=== PATIENT | female | born 1985 | race Caucasian/White ===

== ENCOUNTER → 2016-07-12 | Outpatient (CLI) | payer OTHER | LOC: COL.RAD 12:45 | DX: R10.31 Right lower quadrant pain (principal); R10.2 Pelvic and perineal pain ==

== ENCOUNTER → 2016-09-06 | Outpatient (REF) | LOC: WSOH 09:15 | DX: Z02.89 Encounter for other administrative examinations (principal) ==

== ENCOUNTER → 2018-11-26 | Outpatient (CLI) | payer OTHER | LOC: COL.RAD 07:11 | DX: M67.431 Ganglion, right wrist (principal) ==

== ENCOUNTER 2018-12-21 11:30 | Day surgery (SDC) | payer OTHER ==
[~2018-12-21] VITALS: Ht 170.2 cm; Wt 83.0 kg
[2018-12-21] MEDS ORDERED: ZYRTEC 10MG10 MG PO (12:00)
[2018-12-21] MEDS ORDERED: LUPRON5 MG/M2 SQ (12:01)
[2018-12-21] MEDS ORDERED: ZOLOFT 50MG50 MG PO (12:02)
[2018-12-21] MEDS ORDERED: PRENATAL VITAMI1 T12 PO (12:04)
[2018-12-21] MEDS ORDERED: FEMARA PO (12:06)
[2018-12-21] MEDS ORDERED: ESTRACE2 MG PO (12:06)
[2018-12-21] MEDS ORDERED: ESTRADERM0.1 MG/24 TD (12:07)
[2018-12-21 12:27] VITALS: BP 120/71; PULSE 48; TEMP 97.7
[2018-12-21 14:40] VITALS: BP 99/58; PULSE 48; TEMP 97.8
--- NOTE | 2018-12-21 14:40 | NUR ---
Patient arrives back to [facility] alert, denies pain or nausea. Patient monitor applied, vitals stable. Patient's spouse brought to bedside. Patient given muffin and soda. Patient's right wrist dressing clean/dry/intact with ice pack in place. Patient instructed to keep it elevated and turn/cough/deep breathe frequently.
[2018-12-21 14:55] VITALS: BP 100/64; PULSE 57
--- NOTE | 2018-12-21 15:00 | NUR ---
Patient reports she is doing well, denies pain or nausea. Vitals stable. Patient tolerated food and drink without any complications. CSM of right wrist WNL.
[2018-12-21 15:10] VITALS: BP 99/56; PULSE 52
--- NOTE | 2018-12-21 15:20 | NUR ---
Dismissal instructions gone over with patient and patient's spouse. Both verbalize understanding and all questions answered.
[2018-12-21 15:25] VITALS: BP 101/57; PULSE 52
--- NOTE | 2018-12-21 15:30 | NUR ---
Patient discharged to private vehicle per wheelchair without any complications or difficulties. Patient and spouse leave thanking staff for services.
== END 2018-12-21 15:30 | disposition home or self-care (01) ==
LOC: SDCO 11:30
DX: M67.431 Ganglion, right wrist (principal); Z88.8 Allergy status to other drugs, medicaments and biological substances; Z82.61 Family history of arthritis; F32.9 Major depressive disorder, single episode, unspecified
CPT/HCPCS: J0690; J1100; J2250; J2405; J2704; J3010; J7120

== ENCOUNTER → 2019-01-15 | Outpatient (CLI) | payer OTHER ==
[~2019-01-15] MED LIST: ESTRACE2 MG PO; ESTRADERM0.1 MG/24 TD; FEMARA PO; LUPRON5 MG/M2 SQ; PRENATAL VITAMI1 T12 PO; ZOLOFT 50MG50 MG PO; ZYRTEC 10MG10 MG PO
== END ==
LOC: COL.LAB 07:35
DX: Z32.00 Encounter for pregnancy test, result unknown (principal)

== ENCOUNTER 2019-06-02 21:05 | Outpatient (CLI) | payer OTHER ==
[~2019-06-02] VITALS: Ht 170.2 cm; Wt 86.4 kg
--- NOTE | 2019-06-02 21:00 | NUR ---
2099- PT PRESENTS TO LDR COMPLAINING OF DECREASED MOVEMENT, AMBULATORY TO ROOM LR5, TO BED. 2104- HEART TONES DOPPLERED 140-151 WITHOUT DIFFICULTY. PT REASSURED BY HEARING HEARTBEAT. PLAN OF CARE DISCUSSED. PT DENIES LEAKING FLUID, VAGINAL BLEEDING, CONTRACTION, FEVER, COUGH, SHORTNESS OF BREATH. 2109- VSS 2114- DR GARBER CALLED AND UPDATED ON PT COMPLAINT, HISTORY, DOPPLER, VSS. ORDERS FOR DISMISSAL TO HOME RECEIVED. 2119- NURSING ADMISSION HISTORY AND ASSESSMENT COMPLETE. 2134- DISMISSAL INSTRUCTIONS GIVEN AND PT VERBALIZES UNDERSTANDING. 2139- PT DISMISSED TO HOME AMBULATORY ACCOMPANIED BY STAFF.
[2019-06-02 21:10] VITALS: BP 117/65; PULSE 65; TEMP 98.3
== END 2019-06-02 21:40 | disposition home or self-care (01) ==
LOC: LDRO 21:05
DX: O36.8120 Decreased fetal movements, second trimester, not applicable or unspecified (principal); Z3A.23 23 weeks gestation of pregnancy

== ENCOUNTER → 2019-09-09 | Outpatient (CLI) | payer OTHER | LOC: COL.LAB 08:00 → ZCOL.LAB 08:53 → COL.LAB 09-13 08:48 | DX: Z20.828 Contact with and (suspected) exposure to other viral communicable diseases (principal) ==

== ENCOUNTER → 2019-09-23 | Outpatient (CLI) | payer OTHER ==
[~2019-09-23] MED LIST changes: +ENTOCORT EC3 MG PO; +IBU800 M1 PO; +LIALDA 1.2 GM1.2 GM PO; +PERCOCET 325 MG1 TA2 PO; +VITAMIN B-6100 MG
--- NOTE | 2019-09-23 15:32 | NUR ---
Pt, Sarah Wells, presents for outpatient consult with one week old baby girl, Juliet Wells, and pts spouse. She contacted this after Juliet was seen by Dr. Patel and was referred for BF evaluation. Juliet was born on [birth year] and weighed 8#7.8oz (3850 gms). Yesterday at the doctor appt she weighed 7#13oz per parent report. Today Juliet weighs 7#11.2oz (3492 gms) for a loss of 9% from . Pt reports Juliet has had about 3 voids and 4 small stools in the last 24 hours. She attempts to feed at least every 3 hours but describes Juliet as fussy and does not latch well or remain latched once attached. Pt also reports significant pain with feedings, even with use of a nipple shield. evaluates Juliet's mouth and suck effort. She has a slightly higher than normal arch of the anterior palate. When the gloved finger is advanced she does seem to curl and hold the finger in place but the tongue motion is disorganized. She can extend the tongue across the gum line and it lifts to the top lip. There is a palpable thick frenulum that does not extend to the tip of the tongue but may interfer with smooth wave-like motion of the tongue. also has a fairly noted lip tie as well. Juliet does not successfully latch and remain at the breast during this consult despite assistance from this and use of a nipple shield. Milk is dripping and abundantly available. LC tries several manuevers without success. Pt able to pump 2oz and this is then fed to Juliet who drinks it without difficulty from the bottle. The tongue remains in correct position with the bottle feeding. recommends evaluation of the tongue and lip tie. Discussed post proceedure wound care, and advised to breast feed as soon as possible after proceedure if the release is done. Resource list provided. POC: Three step feeding plan: Offer breast at each feeding, briefly if baby resisting or fighting. Supplement EBM, 2-2.5oz per feeding. Pump to maintain and have supply available for supplement. F/U: To be scheduled with this pending tongue tie evaluation. FridaySeptember [address] Pat[address]. Questions invited and answered.
== END ==
LOC: LAC 14:14
DX: Z39.1 Encounter for care and examination of lactating mother (principal); Z71.89 Other specified counseling

== ENCOUNTER → 2019-09-29 | Outpatient (CLI) | payer OTHER ==
--- NOTE | 2019-09-29 16:44 | NUR ---
Pt, Sarah Wells, presents for outpatient consult with 13 day old baby girl, Juliet Wells, and her spouse Marcelo Wells. They are being evaluated for milk transer s/p 2 days from frenectomy. Juliet was born on [birth year] and weighed 8#7.8oz (3850 gms). She had latch difficlutly at and followed up with this LC on 09/23/19. At that time she weighed 7#11.2oz (3493 gms). Ankyloglossia was noted and likely the cause of not latching. Juliet was seen by Dr. Amin on 09/27/19 for a release and she has been latching since, although not great every time. Pt still has some soreness with latching. Today Juliet weighs 7#15.4oz (3612 gms) for a gain of 4.2oz over the last 6 days. She is primarily breastfed, but gets an occassional ounce of EBM by bottle if she is not content after feeding. Pt has continued to pump after breastfeedings, collecting 1-2oz. Post feed Juliet has a gain of 1.3oz (36 gms). She was content but then a bit fussy. POC: Breastfeed q 2-3 hours, supplement 1oz EBM in the afternoon/evening feedings and follow with pumping. May skip supplement/pumping in the noc or early feedings if Juliet is content and milk volume is likely highest. F/U: Dr. Patel FridayOctober 03. Update to this LC after to determine follow up consult. Pt verbalizes understanding, questions invited and answered.
== END ==
LOC: LAC 15:30
DX: Z39.1 Encounter for care and examination of lactating mother (principal); Z71.89 Other specified counseling

== ENCOUNTER 2019-10-20 08:01 | Day surgery (SDC) | payer OTHER ==
[~2019-10-20] VITALS: Ht 172.7 cm; Wt 81.9 kg
[2019-10-20 08:52] VITALS: BP 97/52; PULSE 51; TEMP 97.6
[2019-10-20] MEDS ORDERED: LIALDA 1.2 GM1.2 GM PO (09:52)
[2019-10-20] MEDS ORDERED: VITAMIN D31000 I1 PO (09:54)
[2019-10-20] MEDS ORDERED: NATURAL IRON65 MG (09:55)
[2019-10-20] MEDS ORDERED: PRENATAL DHA 200 SG PO (09:59)
[2019-10-20] MEDS ORDERED: ZYRTEC 10MG10 MG PO (09:59)
[2019-10-20] MEDS ORDERED: VITAMIN B-6100 MG (10:00)
[2019-10-20 10:05] VITALS: BP 103/41; PULSE 58; TEMP 97.8
--- NOTE | 2019-10-20 10:05 | NUR ---
Patient brought back to bay 4 via cart. Ambulated to chair with one assist. Patient alert and oriented. at bedside. Placed on monitors, vital signs stable. Patient denies pain or nausea. Requesting sprite and applesauce. Swallowing without difficulty. Warm blanket provided, call beatty within reach. Report recieved from Leidy NDIAYE. Will continue to monitor.
[2019-10-20 10:20] VITALS: BP 101/60; PULSE 44
--- NOTE | 2019-10-20 10:20 | NUR ---
Patient tolerating food and drink without difficulty. Denies pain or nausea. Will continue to monitor.
[2019-10-20 10:35] VITALS: BP 111/56; PULSE 50
--- NOTE | 2019-10-20 10:35 | NUR ---
Patient states she feels ready to go home at this time. IV removed, intact. Patient to get dressed at this time. Will continue to monitor.
--- NOTE | 2019-10-20 10:45 | NUR ---
Discharge instructions reviewed with patient and . All questions answered. Patient brought down to lobby via wheel chair. Assisted into truck. To be driven home by . All belongings in hand.
== END 2019-10-20 10:45 | disposition home or self-care (01) ==
LOC: SDCO 08:01
DX: K52.9 Noninfective gastroenteritis and colitis, unspecified (principal); K64.8 Other hemorrhoids; K64.4 Residual hemorrhoidal skin tags; R19.5 Other fecal abnormalities; D64.9 Anemia, unspecified; Z20.828 Contact with and (suspected) exposure to other viral communicable diseases; Z79.899 Other long term (current) drug therapy
CPT/HCPCS: J2250; J3010; J7030

== ENCOUNTER 2021-03-23 16:03 | Emergency (ER) | payer OTHER ==
[~2021-03-23] VITALS: Ht 170.2 cm; Wt 80.9 kg
[~2021-03-23 16:03] MED LIST changes: +NATURAL IRON65 MG; +PRENATAL DHA 200 SG PO; +VITAMIN D31000 I1 PO
[2021-03-23 16:19] VITALS: TEMP 98.1
[2021-03-23 17:15] LABS: BASO % 0.3 % (0.0-2.0); EOS # 0.1 K/mm3 (0.0-0.7); EOS % 0.7 % (0.0-4.0); GRAN # 8.2 K/mm3 (1.4-6.5); GRAN % 76.1 % (42.2-75.2); HEMOGLOBIN 11.6 g/dl (12.5-16.0); LYMPH # 1.5 K/mm3 (1.2-3.4); LYMPH % 14.1 % (20.0-51.0); MEAN CELL VOLUME 97 fl (80.0-100.0); MEAN CORPUSCULAR HEMOGLOBIN 33 pg (27-31); MEAN CORPUSCULAR HGB CONC 34 g/dl (33.0-37.0); MEAN PLATELET VOLUME 10.6 fl (7.4-10.4); MONO # 0.9 K/mm3 (0.1-0.6); MONO % 8.2 % (1.7-9.3); PLATELET COUNT 245 K/mm3 (130-400); RED BLOOD COUNT 3.49 M/mm3 (4.10-5.30)
[2021-03-23 17:24] LABS: ALANINE AMINOTRANSFERASE 9 U/L (0-55); ALBUMIN 2.9 gm/dL (3.5-5.0); ALKALINE PHOSPHATASE 70 U/L (40-150); ANION GAP 8 mmol/L (7-16); AST,SGOT 16 U/L (5-34); BILIRUBIN,TOTAL 0.3 mg/dL (0.2-1.2); BLOOD UREA NITROGEN 8 mg/dL (7-19); CALCIUM 8.7 mg/dL (8.4-10.2); CARBON DIOXIDE 22 mmol/L (22-29); CHLORIDE 106 mmol/L (98-107); CREATININE, serum 0.57 mg/dL (0.57-1.11); GLUCOSE 78 mg/dL (70-99); POTASSIUM 3.8 mmol/L (3.5-4.5); SODIUM 136 mmol/L (136-145); TOTAL PROTEIN 6.5 gm/dL (6.2-8.1)
[2021-03-23 17:25] LABS: HEMATOCRIT 33.7 % (37.0-47.0)
[2021-03-23 17:31] LABS: TROPONIN-I < 0.010 ng/mL (0.00-0.033)
--- NOTE | 2021-03-23 19:00 | NUR ---
Pt in ER with shortness or breath and lightheadedness. 28 weeks with second baby. Pt states all tests came back negative. Pt reports having minimal cramping earlier this week but no contractions or cramping today. Denies leaking of fluids or vaginal bleeding. Reports good movement. Per TOCO no contractions noted.
[2021-03-23 19:50] VITALS: BP 128/61; PULSE 80
== END 2021-03-23 19:55 | disposition home or self-care (01) ==
LOC: COL.ER 16:03
PROVIDERS: Emergency Medicine
DX: O99.013 Anemia complicating pregnancy, third trimester (principal); D64.9 Anemia, unspecified; O99.513 Diseases of the respiratory system complicating pregnancy, third trimester; R06.09 Other forms of dyspnea; Z3A.28 28 weeks gestation of pregnancy

== ENCOUNTER 2021-06-04 07:26 | Inpatient (IN) | payer OTHER ==
[~2021-06-04] VITALS: Ht 170.2 cm; Wt 90.9 kg
[2021-06-06] VITALS (24 sets, daily range): BP systolic 84–140; BP diastolic 46–79; PULSE 45–73; TEMP 97–98.7
--- NOTE | 2021-06-06 06:15 | NUR ---
Pt ambulatory to LR3 with spouse. Changed into clean gown. FHR monitor/TOCO applied. Vital signs WNL. Pt denies any vaginal bleeding, decreased movement, leaking of fluid, or regular contractions. Pt oriented to room. IOL and plan of care discussed. Pt verbalizes understanding 0640 Consents signed 0650 IV started 0700 Pitocin and LR running per protocol. Call light within reach.
[2021-06-06] MEDS ORDERED: CEPHALEXIN500 M1 PO (06:36)
[2021-06-06] MEDS ORDERED: ASPIRIN 81M81 MG/TA2 PO (06:37)
[2021-06-06 07:04] LABS: BASO % 0.4 % (0.0-2.0); EOS # 0.1 K/mm3 (0.0-0.7); EOS % 1.7 % (0.0-4.0); GRAN # 5.4 K/mm3 (1.4-6.5); GRAN % 65.8 % (42.2-75.2); HEMOGLOBIN 12.2 g/dl (12.5-16.0); LYMPH # 1.7 K/mm3 (1.2-3.4); LYMPH % 21.1 % (20.0-51.0); MEAN CELL VOLUME 98 fl (80.0-100.0); MEAN CORPUSCULAR HEMOGLOBIN 35 pg (27-31); MEAN CORPUSCULAR HGB CONC 35 g/dl (33.0-37.0); MEAN PLATELET VOLUME 10.8 fl (7.4-10.4); MONO # 0.8 K/mm3 (0.1-0.6); MONO % 10.1 % (1.7-9.3); PLATELET COUNT 240 K/mm3 (130-400); RED BLOOD COUNT 3.52 M/mm3 (4.10-5.30); REDCELL DISTRIBUTION WIDTH-CV 12.9 % (11.5-14.5)
[2021-06-06 07:09] LABS: HEMATOCRIT 34.5 % (37.0-47.0)
--- NOTE | 2021-06-06 08:45 | NUR ---
0815 Dr Driver on unit reviewing FHR strip 0820 Dr Driver in patients room [address]23 [facility] [address] . By Dr. Driver 0839 Dr. Driver off unit.
--- NOTE | 2021-06-06 10:30 | NUR ---
0935 SVE by this RN /1. 0937 Dr[address] Driver called[address] 0955 Dr. Driver in pt's room SVE by Dr. Driver . This RN sets up for delivery. 1006 This RN instructing patient on pushing. Pt pushes with contraction Dr Driver called into room and Levar Means. Pt begins pushing with contractions 1014 Spontaneous vaginal delivery of viable female . Infant bulb suctioned and stimulated. Cord clamped and cut by Dr. Driver. to mother's chest. Levar Means takes over care of . Dr. Driver doing fundal massage. Pt pushes to deliver placenta. 1025 Spontaneous delivery of placenta. 2nd degree perineal laceration noted. Repaired by Dr. Driver. Fundal massage done. Free flow noted. Dr Driver orders Methergine and cytotec. Fundal massage done. Small amt of bleeding noted. Clean pad placed. Safety precautions and plan of care discussed. Pt verbalizes understanding. Call light within reach.
[2021-06-07 04:37] VITALS: BP 120/64; PULSE 59; TEMP 97.9
[2021-06-07 07:45] VITALS: BP 115/74; PULSE 57; TEMP 97.6
[2021-06-07] MEDS ORDERED: IBU800 M1 PO (08:53)
--- NOTE | 2021-06-07 09:22 | NUR ---
Initial visit; Patient thanked [employer] Map Inker for offering congratulations and God's blessings for offering congratulations and God's blessings for the of her daughter. Technical Illustrations Map Inker thanked patient for choosing [facility].
--- NOTE | 2021-06-07 13:50 | NUR ---
8399 DISCHARGE INSTRUCTIONS REVIEWED WITH PATIENT BY Jimbo HARKINS RN. PATIENT VERBALIZED UNDERSTANDING. WILL NOTIFY NURSING STAFF WHEN READY TO LEAVE.
--- NOTE | 2021-06-07 15:01 | NUR ---
1455ALL PERSONAL BELONGINGS GATHERED FROM PATIENT ROOM. PATIENT LEFT AMBULATORY AND IN NO APPARENT DISTRESS. PATIENT ACCOMPANIED BY SPOUSE AND THIS RN.
== END 2021-06-07 14:55 | disposition home or self-care (01) | DRG 806 ==
LOC: LDR 06-06 06:05 → OB 06-06 06:05 → LDR 06-06 07:25 → OB 06-06 11:02
PROVIDERS: ADMIT Student in an Organized Health Care Education/Training Program
PROC: 10E0XZZ Delivery of Products of Conception, External Approach (ICD-10-PCS; principal; 2021-06-06)
PROC: 0KQM0ZZ Repair Perineum Muscle, Open Approach (ICD-10-PCS; 2021-06-06)
PROC: 10907ZC Drainage of Amniotic Fluid, Therapeutic from Products of Conception, Via Natural or Artificial Opening (ICD-10-PCS; 2021-06-06)
PROC: 3E033VJ Introduction of Other Hormone into Peripheral Vein, Percutaneous Approach (ICD-10-PCS; 2021-06-06)
DX: O99.62 Diseases of the digestive system complicating childbirth (principal); K51.90 Ulcerative colitis, unspecified, without complications; Z37.0 Single live birth; O72.1 Other immediate postpartum hemorrhage; O99.344 Other mental disorders complicating childbirth; F41.9 Anxiety disorder, unspecified; O70.1 Second degree perineal laceration during delivery; Z3A.39 39 weeks gestation of pregnancy
CPT/HCPCS: J2210; J2590; J7120

== ENCOUNTER → 2021-06-15 | Outpatient (CLI) | payer OTHER ==
[~2021-06-15] MED LIST changes: +ASPIRIN 81M81 MG/TA2 PO; +CEPHALEXIN500 M1 PO
--- NOTE | 2021-06-15 14:14 | NUR ---
Pt, Sarah Wells, presents for outpatient consult with 9 day old baby girl Aixa "Christianne Wells because she cannot get Rhona to latch well and Rhona starts to fuss. This causes Sarah to pump and bottle feed. Rhona was born on 06/06/2021 and weighed 9#10.9oz (4390 gms). Pt states Rhona nursed well in the hospital, but once home latching became a challange. She states it is possible engorgement may have gotten them off course. Pt reports Rhona was seen by Dr. Analilia Lopez on 06/11/2021 and weighed 8#12oz. Today Rhona weighs 8#7oz (3842 gms), 12.5% loss from but she appears healthy, MAEW, has a lusty cry, and subq fat noted. In the last 24 hours Rhona has been fed 7 times, 3 at breast and 4 by bottle; she has had 11.5oz EBM. Pt states Rhona has not had a BM in the last 24 hours and the previous ones have been brown/green. She seems to be voiding okay. Pt advised on positioning and latching techniques as well as breast compression to get milk flowing as soon as Rhona latches. She needs minimal assist for a good latch and Rhona has frequent swallows. Pt removes her and relatches Rhona without assist. After the first (R) breast Rhona has a weight gain of 72gms. She is placed to the second breast and demonstrates another 40gm gain. Pt wants to practice latching again, but with Rhona being more content she needs just a little more help but does nurse again for a short time. Total gain is 132 gms (4.7oz). Rhona is content. POC: Breastfeed minimum 8x per 24 hours. Review "flipple" latching technique. Questions invited and answered. F/U: FridayJune 19 @ 1300.
== END ==
LOC: LAC 12:59
DX: Z39.1 Encounter for care and examination of lactating mother (principal)

== ENCOUNTER → 2021-06-19 | Outpatient (CLI) | payer OTHER ==
--- NOTE | 2021-06-19 12:59 | NUR ---
Pt, Jayden Wells, presents for follow up consult with 13 day old baby girl, Aixa "Christianne Wells to evaluate /latch improvement from our consult 4 days ago. Rhona was born on 06/06/2021 and weighed 9# 10.9oz. She was seen by this LC on 06/15/21 and weighed 8#7oz. At that consult position and latch were reviewed and Rhona had a gain of 132 gms. Today Rhona weighs 9# 1.9oz (4136 gms). She has been exclusively , with only a little struggle to get started at the start of the feeding. Once she gets latched several, frequent swallows are noted. Output has also improved. After at this appt. Rhona has a weight gain of 108 gms (3.8oz). POC: Continue ad delmar, consider pumping to save and re-introduce bottles to Rhona in 1-2 more weeks. Questions invited and answered. F/U: As scheduled with Dr. Lopez.
== END ==
LOC: LAC 12:38
DX: Z39.1 Encounter for care and examination of lactating mother (principal); Z71.89 Other specified counseling

== ENCOUNTER 2021-10-16 15:15 | Outpatient (RCR) | payer OTHER | END 2021-10-17 | disposition home or self-care (01) | LOC: PT.GENESIS | DX: M25.561 Pain in right knee (principal); M25.562 Pain in left knee ==

== ENCOUNTER 2021-11-26 16:32 | Outpatient (RCR) | payer OTHER | END 2021-12-17 | disposition home or self-care (01) | LOC: PT.GENESIS | DX: M25.561 Pain in right knee (principal); M25.562 Pain in left knee ==